=== PATIENT | male | born 1935 | race Two or more races ===

== ENCOUNTER 2025-01-20 13:12 | Inpatient (IN) | payer OTHER ==
[2025-01-20 14:25] LABS: INR 1.22 (0.83-1.09); PROTHROMBIN TIME (PATIENT) 13.3 SEC (9.7-13.0)
[2025-01-20 14:28] LABS: ACTIVATED PTT 30.1 SECONDS (25.2-36.5)
[2025-01-20] MEDS: SODIUM CHLORIDE 1,000 ML IV SCH (14:43)
[2025-01-20 14:54] LABS: GLUCOSE,RANDOM 218 mg/dL (74-106); TOT PROT 7.1 g/dl (6.4-8.2)
[2025-01-20 14:57] LABS: ALK PHOS 109 U/L (40-150)
[2025-01-20 15:00] LABS: CREATININE 1.38 mg/dL (0.55-1.3); LDL CHOLESTEROL (ONLY SJRH) 74 mg/dL (5-100); SGOT/AST 23 U/L (5-34); SGPT/ALT 12 U/L (0-55)
[2025-01-20] MEDS ORDERED: ASPIRIN 81 MG CHEWABLE TABLETS ONE (15:01)
[2025-01-20] MEDS ORDERED: CLOPIDOGREL BISULFATE 300 MG TABLET ONE (15:01)
[2025-01-20] MEDS: CLOPIDOGREL BISULFATE 300 MG TABLET PO ONE (15:08)
[2025-01-20] MEDS: ASPIRIN 81 MG CHEWABLE TABLETS PO ONE (15:08)
[2025-01-20] MEDS: SODIUM CHLORIDE 0.9% 500 ML INFUS.BAG IV ONE (15:08)
[2025-01-20 15:11] LABS: CO2 21 mmol/L (21-32)
[2025-01-20 16:32] LABS: ABSOLUTE IMMATURE GRANULOCYTES 0.04 x10^3/uL (0.0-0.031); BASOPHILS # 0.02 x10^3/uL (0.01-0.08); EOSINOPHIL % 1.6 % (0.8-7.0); EOSINOPHILS # 0.10 x10^3/uL (0.04-0.54); MCHC 29.9 g/dl (32.3-36.5); MEAN CELL VOLUME 75.1 fl (79.0-92.2); MEAN PLT VOLUME 10.1 fl (9.4-12.4); MONOCYTE # 0.45 x10^3/uL (0.30-0.82); MONOCYTE % 7.4 % (5.3-12.2); RDW 15.6 % (12.6-16.6)
[2025-01-20 17:24] LABS: LDL CHOLESTEROL (ONLY SJRH) 62 mg/dL (5-100)
[2025-01-20] MEDS: HEPARIN NA (PORCINE) 5,000 UNITS/ML 1ML VIAL SQ SCH (23:13)
[2025-01-20] MEDS: INSULIN ASPART SLIDING SCALE (NOVOLOG) 1 VIAL SQ SCH (23:18)
[2025-01-20] MEDS: ATORVASTATIN CA 80 MG TABLET (FP) PO SCH (23:18)
[2025-01-21 01:23] VITALS: BMI 27.0
[2025-01-21 05:06] VITALS: RESP 20
[2025-01-21 07:06] LABS: MCHC 29.4 g/dl (32.3-36.5); MEAN CELL VOLUME 74.4 fl (79.0-92.2); MEAN PLT VOLUME 10.2 fl (9.4-12.4); RDW 15.6 % (12.6-16.6)
[2025-01-21 07:14] LABS: GLUCOSE,RANDOM 146.0 mg/dL (74-106)
[2025-01-21 07:15] LABS: TOT PROT 6.1 g/dl (6.4-8.2)
[2025-01-21 07:16] LABS: CO2 22.0 mmol/L (21-32)
[2025-01-21 07:17] LABS: ALK PHOS 97.0 U/L (40-150)
[2025-01-21 07:20] LABS: CREATININE 1.27 mg/dL (0.55-1.3); SGOT/AST 23.0 U/L (5-34); SGPT/ALT 10.0 U/L (0-55)
[2025-01-21 07:21] LABS: IRON SERUM 18.0 ug/dL (50-175)
[2025-01-21] MEDS: EZETIMIBE 10 MG TABLET (FP) PO SCH (09:07)
[2025-01-21] MEDS: ASPIRIN 81 MG CHEWABLE TABLETS PO SCH (09:07)
[2025-01-21] MEDS: CLOPIDOGREL BISULFATE 75 MG TABLET (FP) PO SCH (09:07)
[2025-01-21] MEDS: MAGNESIUM 2GM/50ML STERILE WATER IVPB IVPB ONE (09:42)
[2025-01-21] MEDS: PANTOPRAZOLE 40 MG TABLET PO SCH (12:37)
[2025-01-21 15:09] VITALS: TEMP 98.4
[2025-01-21] MEDS: IRON SUCROSE INJECTION 200 MG in SODIUM CHLORIDE 100 ML IVPB ONE (17:17)
[2025-01-21 18:11] VITALS: BP 148/77; PULSE 81
[2025-01-22] MEDS: ENOXAPARIN NA (PORCINE) 40 MG/0.4 ML DISP.SYRIN SQ SCH (00:31)
== END 2025-01-21 23:20 | disposition home or self-care (01) | DRG 65 ==
LOC: JER 13:12 → JERBED 17:29 → J4W 18:51
PROVIDERS: ADMIT Student in an Organized Health Care Education/Training Program; ATTEND Internal Medicine
PROC: 30233N1 Transfusion of Nonautologous Red Blood Cells into Peripheral Vein, Percutaneous Approach (ICD-10-PCS; principal; 2025-01-21)
DX: I63.9 Cerebral infarction, unspecified (principal); I24.89 Other forms of acute ischemic heart disease; I47.10 Supraventricular tachycardia, unspecified; I10 Essential (primary) hypertension; E11.65 Type 2 diabetes mellitus with hyperglycemia; D64.9 Anemia, unspecified; E78.5 Hyperlipidemia, unspecified; D50.9 Iron deficiency anemia, unspecified
CPT/HCPCS: 36415; 36430; 70450-TC; 70496-TC; 70498-TC; 70551-TC; 71045-TC-FY; 80053; 80061; 82550; 82728; 82962; 83036; 83540; 83550; 83735; 84100; 84439; 84443; 84484; 85025; 85027; 85610; 85730; 86850; 86900; 86901; 86922; 93005; 93010; 93306-TC; 97116-GP; 97162-GP; 99285-25; J1756; P9058